=== PATIENT | female | born 1985 | race Caucasian/White ===

== ENCOUNTER 2016-07-17 17:56 | Inpatient (IN) | payer OTHER ==
[~2016-07-17] VITALS: Ht 175.3 cm; Wt 102.5 kg
[2016-07-17] MEDS ORDERED: RANI150T11 PO (19:57)
[2016-07-17] MEDS ORDERED: PREN-100 PO (19:57)
[2016-07-17] MEDS ORDERED: Lactated Ringer's 1,000 ML IV PRN (19:57)
[2016-07-17] MEDS ORDERED: Oxytocin 30 Units/500 mL LR 30 UNITS in IV Premix 1 EACH IV PRN ×3 (20:00→23:10)
[2016-07-17] MEDS ORDERED: Methylergonovine 0.2 mg/mL Inj IM PRN ×2 (20:00→23:10)
[2016-07-17] MEDS ORDERED: Hemorrhage Kit, Post Partum XX ONE ×2 (20:00→23:10)
[2016-07-17] MEDS ORDERED: Oxytocin 10 Unit/mL Inj IM PRN ×2 (20:00→23:10)
[2016-07-17] MEDS ORDERED: Sodium Chloride LOK Flush 10 mL Syringe IVFLUSH PRN (20:00)
[2016-07-17] MEDS ORDERED: Carboprost 250 mCg/mL Inj IM PRN ×2 (20:00→23:10)
[2016-07-17 20:19] LABS: Mean Corpuscular Hemoglobin 31.2 pg (27.0-35.0); Mean Corpuscular Volume 89.6 fL (81-100)
[2016-07-17] MEDS ORDERED: Lactated Ringer's 500 ML IV ONE (20:44)
[2016-07-17] MEDS ORDERED: Lactated Ringer's 1,000 ML IV SCH ×3 (20:44→23:08)
[2016-07-17] MEDS ORDERED: Ondansetron 2 mg/mL 2 mL Inj IVPUSH PRN (20:45)
[2016-07-17] MEDS ORDERED: Atropine 1 mg/10 mL (Code) Syringe IVPUSH PRN (20:45)
[2016-07-17] MEDS ORDERED: fentaNYL 2 mCg/mL-Bupiv 0.125% 100 ML EPIDURAL SCH (20:45)
[2016-07-17] MEDS ORDERED: EPHEDrine Sulfate 50 mg/mL Inj IVPUSH PRN (20:45)
[2016-07-17] MEDS ORDERED: fentaNYL 2 mCg/mL-Bupivicaine 0.125% 100 mL Premix EPIDURAL ONE (21:05)
--- NOTE | 2016-07-17 21:34 | PCM.HPANE ---
Patient Data Surgeon Admitting Provider:Rivas Miller MD Attending Provider:Rivas Miller MD Primary Care Physician:Rivas Miller MD Other Provider:Missael Lauren Anesthesia Reason for Visit Term Labor Check TERM LABOR CHECK Ht/WT & BMI Body Mass Index Allergies Coded Allergies: Penicillins (Verified Allergy, Unknown, 07/17/16) Past Anesthesia History Anesthesia History: Denies:: Abnormal Airway, Difficult Intubation Diabetes History Hx Diabetes?: No MRSA MRSA: No Medications Hypertension Medication: No Home Meds Incl Beta Wilmer: No Reported Medications Ranitidine (Zantac)150 Mg [id number] Mg PO HS PRN AD 07/17/16 Vits #90/Iron Fum/FA ( Formula Tablet)1 Each Tablet1 Each PO DAILY 07/17/16 History HEENT History: Denies:: Abnormal Airway Difficult Intubation Hx of Heart Problems?: No Hx of Respiratory Problem?: No Hx Neurologic Problems?: No Hx of GI Problems?: No Hx of Problems?: No Female Hx: Positive for:: Currently Hx Musculoskeletal Problems?: No Hx of Psycho/Social Problems?: No Hx Surgeries?: No Hx Any Other Health Problems?: No Stop/Bang Treated for Sleep Apnea?: No Do You Have a CPAP Machine?: No NADIR Risk Assessment: Low Risk, <3 Yes Risk Assessment Category Category 1A: Patient has history of documented sleep apnea, and HAS NOT received any narcotic, sedative or anesthesia administration during this stay. Category 1B: Patient has history of documented sleep apnea, and HAS received any narcotic , sedative or anesthesia administration during this stay Category 2: Patient has SUSPECTED Obstructive Sleep Apnea, and HAS received any narcotic , sedative or anesthesia administration during this stay. Category 3: Patient has SUSPECTED Obstructive Sleep Apnea and HAS NOT received narcotic, sedative or anesthesia administration during this stay. Category 4: Outpatient in Procedural Areas with known sleep apnea or who screen positive for High Risk via the STOP/BANG questionnaire. Exam Exam General Appearance: Alert, Oriented X3, Cooperative, Mild Distress HEENT/AIRWAY: MP 2 Lungs: Clear to Auscultation, Normal Air Movement Heart: Exam Unremarkable, Regular Rate/Rhythm, No Murmurs/Rubs/Gallops Meds/Labs/Diagnostics Admission Meds Current Medications Lactated Ringer's (Lr) 1,000 ml @ 125 mls/hr Q8H IV Last administered on t 20:51; Start 07/17/16 at 20:44; Stop 07/18/16 at 20:45 Labs Test 07/17/16 20:00 White Blood Count 14.4th/mm3 (3.8-10.1) Red Blood Count 4.52mil/mm3 (3.90-5.20) Hemoglobin 14.1g/dL (12.0-15.6) Hematocrit 40.5% (35.0-46.0) Mean Corpuscular Volume 89.6fL (81-100) Mean Corpuscular Hemoglobin 31.2pg (27.0-35.0) Mean Corpuscular Hemoglobin Concent 34.8% (32.0-37.0) Red Cell Distribution Width 13.5% (12.3-15.4) Platelet Count 225bil/L (150-400) Plan Impression Patient chart reviewed, patient interviewed and anesthestic plan with risks, benefits, and alternatives discussed, and informed consent obtained. ASA Physical Status: ASA1 Normal Healthy Anesthetic Plan: Epidural Bene/Risks/Altern/Consents: Yes HP Complete Prior to Induction: Yes Bakari Brooks MD Jul 17, 2016 21:34
[2016-07-17] MEDS ORDERED: HYDROcodone-APAP 5-325 mg Tablet PO PRN (23:10)
[2016-07-17] MEDS ORDERED: Influenza (Adult) Vaccine 0.5 mL Syringe IM ONE (23:10)
[2016-07-17] MEDS ORDERED: Benzocaine (Dermoplast) 20% 60 Gm Spray TOPICAL PRN (23:10)
[2016-07-17] MEDS ORDERED: Measles-Mumps-Rubella Vaccine 0.5 mL Inj SUBQ ONE (23:10)
[2016-07-17] MEDS ORDERED: TdaP Vaccine 0.5 mL Inj IM ONE (23:10)
[2016-07-17] MEDS ORDERED: LANOlin HPA 7 Gm Ointment TOPICAL PRN (23:10)
[2016-07-17] MEDS ORDERED: Witch Hazel-Glycerin Pads TOPICAL PRN (23:10)
[2016-07-18] MEDS ORDERED: Sodium Chloride LOK Flush 10 mL Syringe IVFLUSH SCH (00:30)
--- NOTE | 2016-07-18 06:39 | PCM.ANEP1 ---
Post Anesthesia Phase 1 PACU Phase 1 Assessment Anesthetic Administered: Epidural Level of Alertness: Awake, talking COYLE's with Equal Strength: Yes Pain: No Nausea or Vomiting: No Lungs: Clear to Auscultation, Normal Air Movement Dermatome Level: Full Sensation Bakari Brooks MD Jul 18, 2016 06:39
--- NOTE | 2016-07-18 06:39 | PCM.ANEP2 ---
Post Anesthesia Evaluation ASA/CMS Post Anesthesia VS in Patient's Normal Range?: Yes Resp Stable; Airway Patent?: Yes CV Function & Hydration Stable: Yes Mental Status Recovered?: Yes Pain control Satisfactory?: Yes N/V Control Satisfactory?: Yes Bakari Brooks MD Jul 18, 2016 06:39
[2016-07-18 07:10] LABS: Mean Corpuscular Volume 90.3 fL (81-100)
--- NOTE | 2016-07-18 09:54 | PCM.DIOB ---
Obstetrical Disch Instruction Dates of Hospitalization Date of Hospital Admission Jul 17, 2016 at 19:11 Providers Admitting Physician: Rivas Miller MD Primary Care Physician: Rivas Miller MD Attending Physician: Rivas Miller MD Discharge Diagnosis Problems: (1) Status: Acute ICD Code: Z33.1 Diet Discharge Diet: No restrictions Activity Discharge Activity-General: Pelvic Rest for 6 weeks Dressing and Incisional Care Hygiene: May shower Follow Up Plan Follow-up appointment: Weeks (Follow up in 6 weeks for check up with Dr. Miller.) Call your provider for: Fever or Chills, Shortness of breath, Heavy vaginal bleeding, Red painful breasts Rivas Miller MD Jul 18, 2016 09:54
[2016-07-18] MEDS ORDERED: IBUP-1827 PO (09:55)
--- NOTE | 2016-07-18 10:52 | DIS ---
[address] [address] DISCHARGE SUMMARY PATIENT: NEO ABBOTT : 1985 MR#: [id number] ADMIT: 07/17/2016 JOB ID: [id number] DIS: DISCHARGE DIAGNOSIS: Term , delivered. PROCEDURES PERFORMED DURING HOSPITALIZATION: 1. Pitocin augmentation of labor. 2. Vaginal delivery. 3. Epidural anesthesia. HOSPITAL COURSE: This patient was admitted to [facility] on July 17, 2016, on which day she underwent procedures as described. During the timeframe, the patient has done well, with stable vitals, afebrile, with reasonable bleeding and pain management, not dizzy, ambulating and voiding, and handling baby well. hemoglobin okay. Patient was interested in going home on the first day, and her request was granted. DISCHARGE PROGRAM: Patient will call p.r.n., yet otherwise will follow up at six weeks for checkup in Dr. Miller's office at [facility]. She will observe pelvic rest for six weeks. DISCHARGE MEDICATIONS: Include: 1. Ibuprofen 600 mg (prescription written). 2. Also to continue to use as needed ranitidine (although this need may disappear now that delivery has occurred). 3. Also, vitamin daily (the patient has supply at home).
[2016-07-18 11:05] VITALS: BP 136/72; PULSE 71; RESP 16
[2016-07-18 11:17] VITALS: BP 136/72; PULSE 71; RESP 16
--- NOTE | 2016-07-19 00:13 | HP ---
[address] [address] HISTORY AND PHYSICAL PATIENT: NEO ABBOTT : 1985 MR#: [id number] ADMIT: 07/17/2016 JOB ID: [id number] [facility] NOTE: DATE: 07/17/2016 HISTORY: Patient is a 31-year-old, G3, P1, AB1, woman followed prenatally in my office at [facility]. Due date July 17, 2016. course has been relatively uncomplicated. See record for details. Patient presented to the hospital on the morning of July 17, 2016 with spaced contractions. She was found to be 2 cm dilated. She came in again in the evening of July 17, 2016 with stronger contractions that were closer and was found to have 5 cm cervical dilatation. She was, thus, admitted in labor. PHYSICAL EXAMINATION ON ADMISSION: VITAL SIGNS: Last blood pressure in the office 116/78. Last weight in the office 223 pounds. Height 5 feet 9-1/4 inches. NECK: No thyromegaly. LUNGS: Clear to auscultation and percussion. HEART: Regular in rate and rhythm. ABDOMEN: Fundal height consistent with term size, positive heartbeat, vertex presentation. PELVIC EXAMINATION: Cervix 5 to 5/1/2 cm in dilatation, cervix posteriorly located, vertex presentation, bag of water intact. IMPRESSION: 1. A 40 week . 2. Labor, bag of water intact. 3. Negative group B strep status. 4. Rubella immune status. 5. Rh positive. 6. Up to date with Tdap and flu vaccination, having received both in May 2016. 7. Reproductive history: a. First -- termination. b. Vaginal delivery at term in 2013, 8 pound 0 ounce baby, epidural anesthesia provided. c. Third --current. 8. History of ovarian cyst (2010). 9. History of HPV at age 17 apparently on Pap/cervical assessment. Subsequent Paps all normal. 10. Prior Mirena intrauterine device use. control method planned for (?) 11. Increased weight. 12. Anxiety history (age 17, Xanax utilization for a few months). 13. upper back pain symptomatology. 14. PENICILLIN allergy. 15. Family history of hypertension (father), breast cancer (maternal and paternal grandmother). 16. Social history: , father of baby is an outside smoker, patient is a homemaker. PLAN: Patient has been admitted to [facility] on July 17, 2016 in the evening, anticipating vaginal . She requested and received epidural anesthesia, and subsequently artificial rupture of membranes, intrauterine pressure catheter placement, and Pitocin augmentation were all initiated. Later to learn planned control method for .
--- NOTE | 2016-07-19 00:18 | PROG NOTE ---
[address] [address] PROGRESS NOTE PATIENT: NEO ABBOTT : 1985 MR#: [id number] ADMIT: 07/17/2016 JOB ID: [id number] DATE: 07/17/2016 at 2305 hours. HISTORY: Patient was admitted to [facility] on July 17, 2016 on her due date in labor. She requested epidural which was provided. Artificial rupture of membranes was then accomplished with return of clear fluid, and intrauterine pressure catheter was placed. Pitocin augmentation was provided. Following artificial rupture of membranes and initiation of Pitocin, cervical dilatation progressed rapidly to complete. heart tracing was okay. Once completely dilated, patient pushed basically with one contraction and head steadily descended and delivered, followed by the shoulders, body, and extremities. Baby was active and crying and vigorous. There was a nuchal and body cord. Baby was handed to mother for bonding and further nurse management. After a minute delay, umbilical cord was clamped and cut, and then cord blood was obtained for routine studies. Placenta with membranes were then expelled, intact. Betadine solution was used to cleanse the vulvovaginal region. There were no lacerations. Uterus contracted well with massage plus intravenous Pitocin infusion. Estimated blood loss was in the 250 cc range. Procedures were thus complete and instrument/needle/sponge counts were all found to be correct. It certainly is anticipated that patient and baby will do well during the timeframe.
== END 2016-07-18 12:00 | disposition home or self-care (01) | DRG 775 ==
LOC: FBCO 17:56 → FBC 19:11
PROVIDERS: ADMIT Obstetrics & Gynecology; ATTEND Obstetrics & Gynecology
PROC: 10E0XZZ Delivery of Products of Conception, External Approach (ICD-10-PCS; principal; 2016-07-17)
PROC: 10907ZC Drainage of Amniotic Fluid, Therapeutic from Products of Conception, Via Natural or Artificial Opening (ICD-10-PCS; 2016-07-17)
DX: O69.81X0 Labor and delivery complicated by cord around neck, without compression, not applicable or unspecified (principal); Z37.0 Single live birth; Z3A.40 40 weeks gestation of pregnancy; O69.82X0 Labor and delivery complicated by other cord entanglement, without compression, not applicable or unspecified